=== PATIENT | female | born 1950 | race Caucasian/White ===

== ENCOUNTER → 2016-12-17 | Outpatient (CLI) | payer OTHER ==
--- NOTE | 2016-12-17 14:23 | US ---
Complete Retroperitoneal Ultrasound History: Elevated creatinine, dehydration. Comparison: Right upper quadrant ultrasound July 02, 2016, CT abdomen pelvis January 23, 2011. Findings: The right kidney measures 9.9 x 4.7 x 4.8 cm and the left kidney measures 9.3 x 5.4 x 7.0 c m. The kidneys have normal echotexture, cortical thickness, and contour without pelvicaliectasis. The liver is echogenic suggesting fatty infiltration. The bladder is poorly distended, with a prevoid bladder volume of 31 mL. Ureteral jets were not ident ified. Impression: 1. Normal renal ultrasound. 2. Fatty infiltration of the liver.
== END ==
LOC: BRMIMAGING 11:22
PROVIDERS: ATTEND Internal Medicine Nephrology
DX: K76.0 Fatty (change of) liver, not elsewhere classified (principal)
CPT/HCPCS: 76770-PO